=== PATIENT | female | born 2000 | race Hispanic/Latino ===

== ENCOUNTER 2023-04-21 17:27 | Emergency (ER) | payer OTHER ==
[~2023-04-21] VITALS: Ht 172.7 cm; Wt 111.4 kg
[2023-04-21] MEDS ORDERED: HYDROCODON-ACE1 EA10 PO (23:20)
[2023-04-21] MEDS ORDERED: AMOX TR-K CLV1 EAC1 PO (23:20)
[2023-04-22 00:18] VITALS: BP 121/86
== END 2023-04-22 00:20 | disposition home or self-care (01) ==
LOC: ED 17:27
DX: K04.7 Periapical abscess without sinus (principal)
CPT/HCPCS: 36415; 70487; 80053; 84703; 85025; 96375; 99283 25; A9270; J2270; J2405; Q9967

== ENCOUNTER 2024-02-14 07:07 | Day surgery (SDC) | payer OTHER ==
[~2024-02-14] VITALS: Ht 167.6 cm; Wt 111.8 kg
[~2024-02-14 07:07] MED LIST: AMOX TR-K CLV1 EAC1 PO; HYDROCODON-ACE1 EA10 PO; IBLOOD GLUCOSE TEST STRIP 1 EA TEST VI PRN; LACTATED RINGER'S 1,000 ML IV SCH; LIDOCAINE HCL 1% 5 ML SDV INJ ONE; MIDAZOLAM HCL 5 MG/5 ML VIAL IV PRN; fentaNYL citrate 100 MCG/2 ML VIAL IV PRN
[2024-02-14 07:23] VITALS: BP 135/91
[2024-02-14] MEDS ORDERED: MIDAZOLAM HCL 5 MG/5 ML VIAL ONE ×2 (08:09→08:28)
[2024-02-14] MEDS ORDERED: fentaNYL citrate 100 MCG/2 ML VIAL ONE ×2 (08:09→08:33)
--- NOTE | 2024-02-14 08:57 | NUR ---
02/14/24 0857 CoreyLizy PATIENT ARRIVES IN PACU AND RESPONDS TO MY LIGHT VOICE BY FLUTTERING HER EYES. SHE RETURNS TO RESTING QUIETLY, WITH EYES CLOSED, RESPIRATIONS EVEN AND UNLABORED WHEN UNSTIMULATED. PATIENT REMAINS 100% ON 2L VIA NC. OXYGEN IS TURNED OFF @ THIS TIME.
[2024-02-14 09:15] VITALS: BP 125/92
--- NOTE | 2024-02-14 09:45 | OR ---
[facility] [address] [place], [place] [address] Signed DATE OF OPERATION: 02/14/2024 SURGEON: Bhumika Johnson MD PREOPERATIVE DIAGNOSES: 1. Irritable bowel syndrome with diarrhea and constipation. 2. Fecal urgency. 3. Elevated stool calprotectin and lactoferrin levels. POSTOPERATIVE DIAGNOSIS: Unremarkable colonoscopy. PROCEDURES: Colonoscopy with cold biopsies of the terminal ileum, right colon, transverse colon, left colon, sigmoid colon and rectum. ESTIMATED BLOOD LOSS: None. INDICATIONS: Reena is a 23-year-old female, who tells me she has significant panic disorder and agoraphobia. She said anywhere new makes her very nervous. She was very nervous she is coming into the office. 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 She describes fecal urgency and has to run to the bathroom fairly quickly. She has been working with her primary care provider, Dr. Crawford. There was discussion about irritable bowel syndrome with diarrhea and also some constipation. She is also using marijuana on a daily basis to help with the anxiety. She tried Zoloft, but she did not feel it was helping, so she stopped the medication. She tried dicyclomine, but it did not help either. Her stool study showed some elevation in the stool calprotectin and lactoferrin levels. She said there is no rectal bleeding. She does not have any trouble at night. She can often have a bowel movement 30 to 40 minutes after she eats, which suggest rapid transit. She gives no family history of colon cancer, polyps or inflammatory bowel disease. In the office, I gave Reena a brochure on colonoscopy. We had reviewed the nature of the test. There is risk including, but not limited to gas bloating, crampy abdominal pain, bleeding, perforation requiring surgery, and missed diagnosis. We also reviewed the written instructions for the bowel prep line by line. We talked about the need for sedation. She wanted to proceed with IV Versed and fentanyl. Of course, there is always the risk with her marijuana use and anxiety that may not be enough to sedate her sufficiently. There is the potential she could use monitored anesthesia care with propofol infusion. She had expressed understanding and Electronically Signed By: BHUMIKA JOHNSON MD 02/14/24 0945 PATIENT NAME: REENA RICH OPERATIVE REPORT DATE OF : 89 REPORT #: [id number] PHYSICIAN: BHUMIKA JOHNSON MD PCP: LAINA CRAWFORD MD REPORT IS CONFIDENTIAL AND NOT TO BE RELEASED WITHOUT AUTHORIZATION [facility] [address] [place] [id number] Signed wished to proceed. PROCEDURE IN DETAIL: Reena was taken into our endoscopy suite and placed in the left lateral decubitus position. She was given IV sedation with 150 mcg of fentanyl and 8 mg of Versed. A digital rectal exam was performed and this was unremarkable. She had no external hemorrhoids. There were no masses noted. She had good sphincter tone. I saw no fistulous tracts. The adult colonoscope was introduced and advanced under direct visualization of the camera. It took a little extra sedation and abdominal compression as we came around the hepatic flexure and down into the cecum itself. Her prep was quite excellent. We could easily see the appendiceal orifice and the ileocecal valve. We turned the camera up into the terminal ileum about 6 to 8 cm. It would not pass any further. It looked very healthy. We went ahead and took a couple of cold biopsies of the terminal ileum for pathologic review. The scope was then slowly withdrawn. We took pictures throughout the colon for photodocumentation. We also took cold biopsies in the right colon, transverse colon, left colon, sigmoid colon and rectum. The entire colon and rectum appeared quite healthy. Upon retroflexion of the scope, we saw no pathology above the anal canal. After this, the gas was suctioned out and the colonoscope removed. Reena tolerated the procedure quite well. RECOMMENDATIONS: I will see Reena back in my office in 7 to 14 days to review the biopsy results. It looks like she does indeed have irritable bowel syndrome. Bhumika Johnson MD ALB/MODL /[id number] cc: Dr. Laina Johnson MD Electronically Signed By: BHUMIKA JOHNSON MD 02/14/24 0945 PATIENT NAME: REENA RICH OPERATIVE REPORT DATE OF : [birth year] REPORT #: [id number] PHYSICIAN: BHUMIKA JOHNSON MD PCP: LAINA CRAWFORD MD REPORT IS CONFIDENTIAL AND NOT TO BE RELEASED WITHOUT AUTHORIZATION [address] [address] Signed Copies: BHUMIKA JOHNSON MD ~ Electronically Signed By: BHUMIKA JOHNSON MD 02/14/24 0945 PATIENT NAME: REENA RICH OPERATIVE REPORT DATE OF : [birth year] REPORT #: [id number] PHYSICIAN: BHUMIKA JOHNSON MD PCP: LAINA CRAWFORD MD REPORT IS CONFIDENTIAL AND NOT TO BE RELEASED WITHOUT AUTHORIZATION
--- NOTE | 2024-02-20 17:11 | PATH ---
[facility] [address] [place], [place] [address] Signed SPECIMEN(S): A ILEUM BIOPSY SPECIMEN(S): B ASCENDING/RIGHT COLON BIOPSY SPECIMEN(S): C TRANSVERSE COLON BIOPSY SPECIMEN(S): D DISTAL DESCENDING/LEFT COLON BIOPSY SPECIMEN(S): E SIGMOID BIOPSY AT 30 CM SPECIMEN(S): F RECTUM BIOPSY AT 10 CM SPECIMEN SOURCE: A. ILEUM BIOPSY B. ASCENDING/RIGHT COLON BIOPSY C. TRANSVERSE COLON BIOPSY D. DISTAL DESCENDING/LEFT COLON BIOPSY E. SIGMOID BIOPSY AT 30 CM F. RECTUM BIOPSY AT 10 CM CLINICAL HISTORY: Colonoscopy. History of IBS, diarrhea. FINAL PATHOLOGIC DIAGNOSIS: A. Ileum biopsy: - Small bowel type mucosa with focal acute epithelial inflammation (ileitis) and focal mild villous attenuation (nonspecific). - Negative for epithelial dysplasia. B. Ascending/right colon biopsy: - Quiescent colonic mucosa, negative for dysplasia. C. Transverse colon biopsy: - Quiescent colonic mucosa, negative for dysplasia. D. Distal descending/left colon biopsy: - Quiescent colonic mucosa, negative for dysplasia. E. Sigmoid biopsy at 30 cm: - Quiescent colonic mucosa, negative for dysplasia. F. Rectum biopsy at 10 cm: - Quiescent colonic mucosa, negative for dysplasia. IfrahVR:jose l MICROSCOPIC EXAMINATION: Histologic sections of all submitted blocks are examined by light microscopy. These findings, together with the gross examination, support the pathologic diagnosis. GROSS DESCRIPTION: PATIENT NAME: REENA CARPENTER PATHOLOGY DATE OF : [birth year] REPORT #: [id number] PHYSICIAN: ROVERTO PATHOLOGY PCP: VIKI CRAWFORD MD REPORT IS CONFIDENTIAL AND NOT TO BE RELEASED WITHOUT AUTHORIZATION [facility] [address] [place], [place] [address] Signed A. The specimen, labeled and designated "Carpenter, 1" and designated on the requisition "ileum biopsy," is received in formalin and consists of two kramer soft tissue fragments, ranging from 0.5-0.7 cm. Entirely submitted in (A1). B. The specimen, labeled and designated "Carpenter, 2" and designated on the requisition "ascending/right biopsy," is received in formalin and consists of one kramer soft tissue fragment, 0.4 cm. Entirely submitted in (B1). C. The specimen, labeled and designated "Carpenter, 3" and designated on the requisition "transverse biopsy," is received in formalin and consists of one kramer soft tissue fragment, 0.4 cm. Entirely submitted in (C1). D. The specimen, labeled and designated "Carpenter, 4" and designated on the requisition "distal descending/left biopsy," is received in formalin and consists of one kramer soft tissue fragment, 0.8 cm. Entirely submitted in (D1). E. The specimen, labeled and designated "Carpenter, 5" and designated on the requisition "sigmoid biopsy at 30 cm," is received in formalin and consists of one kramer soft tissue fragment, 0.4 cm. Entirely submitted in (E1). F. The specimen, labeled and designated "Carpenter, 6" and designated on the requisition "rectum biopsy at 10 cm," is received in formalin and consists of one kramer soft tissue fragment, 0.3 cm. Entirely submitted in (F1). AC (under the direct supervision of a pathologist) The Gross Description was prepared using a voice recognition system. The report was reviewed for accuracy; however, sound-alike word errors, addition and/or deletions may occur. If there is any question about this report, please contact Client Services. ADDITIONAL NOTES: Immunohistochemical and/or in situ hybridization studies if performed in this case included appropriate positive controls that reacted as expected. This test was developed and its performance characteristics determined by [facility]. It has not been cleared or approved by the U.S. Food and Drug Administration. The FDA has determined that such clearance or approval is not necessary. This test is used for clinical purposes. It should not be regarded as investigational or for research. [facility] is certified under the Clinical Laboratory Improvement Amendments of 1988 (CLIA) as qualified to perform high complexity clinical PATIENT NAME: REENA CARPENTER PATHOLOGY DATE OF : [birth year] REPORT #: [id number] PHYSICIAN: ROVERTO HARRIS PCP: VIKI CRAWFORD MD REPORT IS CONFIDENTIAL AND NOT TO BE RELEASED WITHOUT AUTHORIZATION [facility] [address] [place] [id number] Signed laboratory testing. PERFORMING LABORATORY: Technical component was performed by [facility], [address] [place] [id number] (CLIA# [id number]). Professional interpretation was performed by [facility], [address] [place] [address] [place], [place] [address] (CLIA#: [id number]). Diagnostician: Romie Edmond MD Pathologist Electronically Signed 02/20/2024 Copies: ~ PATIENT NAME: BEAU CARPENTERRA PATHOLOGY DATE OF : [birth year] REPORT #: [id number] PHYSICIAN: ROVERTO PATHOLOGY PCP: VIKI CRAWFORD MD REPORT IS CONFIDENTIAL AND NOT TO BE RELEASED WITHOUT AUTHORIZATION
== END 2024-02-14 09:23 | disposition home or self-care (01) ==
LOC: DS 07:07
PROVIDERS: ATTEND Colon & Rectal Surgery
PROC: 0DBL8ZX Excision of Transverse Colon, Via Natural or Artificial Opening Endoscopic, Diagnostic (ICD-10-PCS; 2024-02-14)
PROC: 0DBN8ZX Excision of Sigmoid Colon, Via Natural or Artificial Opening Endoscopic, Diagnostic (ICD-10-PCS; 2024-02-14)
PROC: 0DBP8ZX Excision of Rectum, Via Natural or Artificial Opening Endoscopic, Diagnostic (ICD-10-PCS; 2024-02-14)
PROC: 0DBF8ZX Excision of Right Large Intestine, Via Natural or Artificial Opening Endoscopic, Diagnostic (ICD-10-PCS; 2024-02-14)
PROC: 0DBG8ZX Excision of Left Large Intestine, Via Natural or Artificial Opening Endoscopic, Diagnostic (ICD-10-PCS; 2024-02-14)
PROC: 0DBB8ZX Excision of Ileum, Via Natural or Artificial Opening Endoscopic, Diagnostic (ICD-10-PCS; principal; 2024-02-14 08:15)
DX: K58.2 Mixed irritable bowel syndrome (principal); R15.2 Fecal urgency; F40.01 Agoraphobia with panic disorder; F12.10 Cannabis abuse, uncomplicated; E66.9 Obesity, unspecified; Z68.41 Body mass index [BMI] 40.0-44.9, adult
CPT/HCPCS: 84703; 99153; G0500; J2250; J3010; J7121